=== PATIENT | female | born 1990 | race Caucasian/White ===

== ENCOUNTER 2022-03-02 12:43 | Outpatient (CLI) | payer OTHER, SELFPAY ==
--- NOTE | 2022-03-02 13:00 | CRLHL7_ITS ---
For Patients: As a result of the Cures Act, medical imaging exams and procedure reports are released immediately into your electronic medical record. You may view this report before your referring provider. If you have questions, please contact your health care provider. INDICATION: Dating and viability. LMP 01/03/2022. COMPARISON: None. TECHNIQUE: Real-time hernandez-scale imaging of the pelvis was performed. FINDINGS: Sonographic imaging demonstrates a single intrauterine gestation. The embryo`s crown-rump length measurement of 0.8 cm corresponds to a gestational age of 6 weeks 5 days with a sonographic due date of 10/21/2022. No heart tones or yolk sac identified. The placenta has not yet developed. No evidence of a perigestational hemorrhage. Retroverted uterus. Blood flow is seen within the ovaries. Small amount of simple free fluid in the cul-de-sac. IMPRESSION: 1. Single intrauterine gestation with crown rump length 0.8 cm which corresponds to a gestational age of 6 weeks 5 days. This is discordant with the clinical gestational of 8 weeks 2 days by LMP. 2. No heart tones or yolk sac identified. Based on crown-rump length, findings are diagnostic of failure. 3. Small amount of simple free fluid. Dictated by Marie Gutiérrez MD @ 03/02/2022 2:35:40 PM (Electronically Signed)
== END 2022-03-02 12:44 | disposition home or self-care (01) ==
LOC: US 12:45
PROVIDERS: Visit Provider Registered Nurse
DX: Z34.91 Encounter for supervision of normal pregnancy, unspecified, first trimester (principal); O36.8310 Maternal care for abnormalities of the fetal heart rate or rhythm, first trimester, not applicable or unspecified; Z3A.01 Less than 8 weeks gestation of pregnancy
CPT/HCPCS: 76817

== ENCOUNTER 2024-11-09 06:56 | Outpatient (CLI) | payer MEDICAID, SELFPAY ==
--- NOTE | 2024-11-09 07:15 | CRLHL7_ITS ---
For Patients: As a result of the Century Cures Act, medical imaging exams and procedure reports are released immediately into your electronic medical record. You may view this report before your referring provider. If you have questions, please contact your health care provider. INDICATION: Check viability and dates TECHNIQUE: Transabdominal and transvaginal scanning was performed. Transvaginal scanning was performed to better evaluate the IUP and adnexa. Ovarian blood flow was evaluated with color-flow and pulsed Doppler. COMPARISON: None FINDINGS: There is a living IUP with gestational age of 8 weeks 6 days by today`s crown-rump length and EDC of 06/15/2025. LMP is apparently unknown. The embryonic heart rate is measured at 180 beats per minute. The placenta is not yet formed. No subchorionic hemorrhage is evident. There is question of a 2.1 cm left ovarian corpus luteum. The right ovary measures 2.8 x 2.1 x 1.8 cm and the left 4.1 x 2.3 x 1.8 cm. Ovarian blood flow is demonstrated with color-flow and pulsed Doppler. No adnexal mass or free fluid is apparent. IMPRESSION: 1. Living IUP with gestational age of 8 weeks 6 days by today`s crown-rump length and EDC of 06/15/2025. 2. No complication evident. Dictated by Sudhir Munoz MD @ 11/10/2024 11:36:02 AM (Electronically Signed)
== END 2024-11-09 06:57 | disposition home or self-care (01) ==
LOC: US 06:57
PROVIDERS: Visit Provider Registered Nurse
DX: Z34.91 Encounter for supervision of normal pregnancy, unspecified, first trimester (principal); Z3A.08 8 weeks gestation of pregnancy
CPT/HCPCS: 76817

== ENCOUNTER 2024-11-09 08:45 | Outpatient (CLI) | payer MEDICAID, SELFPAY ==
[2024-11-09 12:57] LABS: Chlamydia DNA Amplified* NOT DETECTED (No Detected); GC DNA Amplified* NOT DETECTED (No Detected)
[2024-11-10 18:10] LABS: HPV Source Cervix; HPV, High Risk by TMA Not Detected
== END 2024-11-09 08:46 | disposition home or self-care (01) ==
PROVIDERS: Visit Provider Registered Nurse
DX: Z34.91 Encounter for supervision of normal pregnancy, unspecified, first trimester (principal); Z3A.08 8 weeks gestation of pregnancy; Z12.4 Encounter for screening for malignant neoplasm of cervix
CPT/HCPCS: 83020; 83021; 85660; 86592; 86703; 86704; 86706; 86762; 86787; 86803; 86850; 86900; 86901; 87086; 87340; 87491; 87591; 87624; 87625; 88141; 88142

== ENCOUNTER 2025-01-23 07:03 | Outpatient (CLI) | payer MEDICAID, SELFPAY ==
--- NOTE | 2025-01-23 07:15 | CRLHL7_ITS ---
For Patients: As a result of the Century Cures Act, medical imaging exams and procedure reports are released immediately into your electronic medical record. You may view this report before your referring provider. If you have questions, please contact your health care provider. OB ULTRASOUND GREATER THAN 14 WEEKS, 01/23/2025 CLINICAL HISTORY: Basic anatomy survey. COMPARISON: 11/09/2024. TECHNIQUE: Real time hernandez scale imaging of the fetus was performed. Evaluate anatomy. Transabdominal imaging performed. FINDINGS: KIM by US: 06/15/2025. GA: 19 weeks 4 days. POSITION: Vertex. PLACENTA/CORD: Placenta position: Posterior. Technique: TA. Placenta tip to internal OS: 8 cm. Umbilical Cord: 3 vessel cord. Placental insertion: Central. CERVIX: Visualized. Technique: TA. Length of closed cervix: 3.3 cm. AMNIOTIC FLUID: 4.7 cm SDP. OBSERVED STRUCTURES: Calvarium/Spine: Cerebellum 1.9 cm, 19 weeks 5 days. Cisterna Magna 4.4 mm. Nuchal Fold 4.1 mm. Lateral Ventricle 6.9 mm. CSP Midline Falx Choroid Plexus Spine Abdomen: Stomach Abd Cord Insert Urinary Bladder Kidneys Diaphragm Face: Nose/Lips Orbital view Profile Limbs: Upper Extremities Lower Extremities Hands Feet Vascular: 4 Ch Heart LVOT RVOT 3VV 3VTV BIOMETRY: BPD: 4.5 cm, 19 weeks 4 days. 52% HC: 16.8 cm, 19 weeks 3 days. 35% AC: 13.8 cm, 19 weeks 2 days. 33% FL: 3.1 cm, 19 weeks 5 days. 49% FL/AC: 22.75% ESCAMILLA/AC Ratio: 1.21. Heart Rate: 144 bpm. Age by this US: 19 weeks 4 days. KIM by this US: 06/15/2025. EFW: 294 grams, 10 oz. Percentile by KIM: 39% IMPRESSION: Normal anatomic survey. Concordance of clinical and sonographic dating. Kris Huntley M.D. Diagnostic Radiologist [email or web address] Transcribed: 11:04 am DW/Dictated by: Kris Huntley MD @ 01/23/2025 9:13:00 AM (Electronically Signed)
== END 2025-01-23 07:04 | disposition home or self-care (01) ==
PROVIDERS: Visit Provider Midwife
DX: Z34.92 Encounter for supervision of normal pregnancy, unspecified, second trimester (principal); Z3A.19 19 weeks gestation of pregnancy
CPT/HCPCS: 76805

== ENCOUNTER 2025-03-22 08:05 | Outpatient (CLI) | payer MEDICAID, SELFPAY | END 2025-03-22 08:06 | disposition home or self-care (01) | LOC: NFLDREF 03-27 12:49 | PROVIDERS: Visit Provider Advanced Practice Midwife | DX: Z34.92 Encounter for supervision of normal pregnancy, unspecified, second trimester (principal); Z3A.27 27 weeks gestation of pregnancy | CPT/HCPCS: 86592 ==

== ENCOUNTER 2025-05-23 14:54 | Outpatient (CLI) | payer MEDICAID, SELFPAY ==
[2025-05-24 14:35] LABS: Strep B DNA Probe Negative (Negative)
[2025-05-24 15:11] LABS: Strep B Susceptibility Needed? No
== END 2025-05-23 14:55 | disposition home or self-care (01) ==
LOC: NFLDREF 14:54
PROVIDERS: Visit Provider Advanced Practice Midwife
DX: Z34.93 Encounter for supervision of normal pregnancy, unspecified, third trimester (principal)
CPT/HCPCS: 82728; 87081; 87653

== ENCOUNTER 2025-06-06 14:38 | Outpatient (CLI) | payer MEDICAID, SELFPAY ==
--- NOTE | 2025-06-06 14:45 | CRLHL7_ITS ---
For Patients: As a result of the Cures Act, medical imaging exams and procedure reports are released immediately into your electronic medical record. You may view this report before your referring provider. If you have questions, please contact your health care provider. OB ULTRASOUND INDICATION: Fundal height measuring small for last 3 weeks. KIM by US: 06/15/2025. GA: 38 w, 5 d. Single. COMPARISON: 01/23/2025, . TECHNIQUE: Real time hernandez scale imaging of the fetus was performed. Transabdominal imaging performed. CERVIX: Not visualized. POSITIONING: Vertex. AMNIOTIC FLUID: 5.8 cm SDP (N: greater than 2 x 1 cm). PLACENTA: Technique: Transabdominal. PLACENTA POSITION: Posterior. DOPPLER: heart rate: 142 bpm. BIOMETRY: BPD: 8.8 cm. 35w, 2 d, 4.6 percent. HC: 33.3 cm. 38 w, 0 d, 20.3 percent. AC: 33.8 cm. 37 w, 5 d, 42.0 percent. FL: 7.3 cm. 37 w, 2 d, 20.7 percent. FL/AC ratio: 21.54 percent. HC/AC ratio: 0.99. EFW: 3185 g. Weight: 7 lbs, 0 oz. age by this US: 37 w, 1 d. KIM by this US: 06/26/2025. Percentile by KIM: 32.6 percent. IMPRESSION: 1. Single living intrauterine measures 37 weeks 1 day with sonographic due date of 06/26/2025. Sonographic age is 11 days behind the clinical age. 2. Estimated weight 33rd percentile. Abdominal circumference 42nd percentile. Kris Huntley M.D. Diagnostic Radiologist [email or web address] COLLEEN/Dictated by: Kris Huntley MD @ 06/06/2025 4:29:00 PM (Electronically Signed)
== END 2025-06-06 14:39 | disposition home or self-care (01) ==
LOC: US 14:38
PROVIDERS: Visit Provider Advanced Practice Midwife
DX: O36.5930 Maternal care for other known or suspected poor fetal growth, third trimester, not applicable or unspecified (principal); Z3A.38 38 weeks gestation of pregnancy
CPT/HCPCS: 76816

== ENCOUNTER 2025-06-18 01:30 | Inpatient (IN) | payer MEDICAID, SELFPAY ==
[2025-06-18] VITALS (16 sets, daily range): BP systolic 93–128; BP diastolic 66–82; PULSE 73–108; RESP 16; TEMP 36.8–37.1; O2SAT 95–98; BMI 21.9
--- NOTE | 2025-06-18 02:15 | W.PM.LDBA ---
Subjective History of Present Illness Narrative: Patient is being admitted to Labor and Delivery for active labor, transition phase. She is a 35 year old at 40 3/7 weeks gestation. Her full history and physical was dictated by Rosario DAVEY on 06/13/25. Please see this for details. She is accompanied by her partner and son. Specific Issues/Plans G 6 P 3023 Partner: John, Candidaex-8, Omar-6, Carlos-2. (2girls, 1 boy) H&P completed 06/13 by PETAR Vasquez, please listen to heart and lungs on admission # history of precipitous 2022 Very nervous about risk of home/car ; review this in 3rd trimester Consider elective IOL due to hx and anxiety related #anemia at 36 weeks Hgb 10.5, oral iron recommended # Lagging fundal heights EFW 33% at 38.5 weeks IMAGINst trimester (11/09/2024): IMPRESSION: 1. Living IUP with gestational age of 8 weeks 6 days by today`s crown-rump length and EDC of 06/15/2025. 2. No complication evident. Anatomy scan (01/23/2025): IMPRESSION: Normal anatomic survey. Concordance of clinical and sonographic dating. Growth US (05/16/2025): IMPRESSION: 1.Single living intrauterine measures 37 weeks 1 day with sonographic due date of 06/26/2025. Sonographic age is 11 days behind the clinical age. 2.Estimated weight 33rd percentile. Abdominal circumference 42nd percentile. Vaccinations: Flu: Recommended, declined Covid: Recommended, declined Tdap: given 05/10/25 RSV: declines 32 week mental health: [] Last pap: 11-09-24 OB - Problem Based A/P Additional Plan (1) Precipitous delivery: Status: Acute (2) (normal spontaneous vaginal delivery): Status: Acute (3) care and examination of lactating mother: Status: Acute Plan ASSESSMENT:?? 35yo at 40 3/7 weeks gestation?? complicated by:??anemia Labor type: spontaneous, active labor?? Category 1 FHR pattern, then Cat 2 with rapid descent.??? Labor complicated by: cat 2, precipitous labor?? GBS negative? PLAN:?? 1. Routine intrapartum cares as ordered. Continue with expectant management?? 2. Monitoring per policy, continuous x 20 min?? 3. Planning unmedicated . Candidate for analgesia of choice if time as appropriate.??? 4. Patient encouraged to reposition and ambulate to promote physiologic labor and .?? 5. This was documented after precipitous ? 6. Anticipate ? OB Exam Physical Exam Vital signs: Pulse BP 97 118/82 06/18/25 02:03 06/18/25 02:03 Narrative: Vitals Reviewed Constitutional:? Alert and oriented x3 HEENT:? Normocephalic, atraumatic Neck:? Supple Lungs:? Clear to auscultation bilaterally Heart:? Regular rate and rhythm, no murmur, rub or gallop Abdomen:? Soft, nontender, and gravid. Vertex by Alex's, confirmed with cervical exam. Extremities:? No edema or erythema Cervix: 9.5 cm/100%/0 station/vertex per nursing and hair on head palpated NST: 125 bpm/moderate variability/accelerations not present/variable decelerations present soon after arrival with rapid descent/contractions q 2 min
[2025-06-18] MEDS: IBUPROFEN 600 MG TABLET PO (02:18)
--- NOTE | 2025-06-18 02:24 | W.PM.OBVAGDE ---
OB Procedure Vag Delivery Mother Details Mother Details: The patient is a 35 year-old, 6, Para 4, admitted on 06/18/25 at 40 3/7 weeks gestation. Admission Date: 06/18/25 Additional Details Amniotic Membrane Status: SROM Amniotic Membrane Rupture Date: 06/17/25 Amniotic Membrane Rupture Time: 23:30 Amniotic Membrane Fluid Description: Clear Analgesia/Anesthesia Type: None Waterbirth: No Pitcoin: No Intrapartal Events: Precipitous Labor <3 Hrs Labor Onset: 23:30 Complete: 01:39 Pushin:39 Heart: heart tones during second stage were category 2 with variable decels with rapid descent. Moderate variability throughout. Delivery Details Delivery Date: 06/18/25 Delivery Time: :39 Route of delivery: Infant Gender: Female Viability: Alive; Heart Rate Present Position at Delivery: OA Delivery Details: Patient was admitted for?precipitous labor?and progressed quickly being dilated to RIM on arrival. SROM noted at?2330?with clear fluid. Patient was complete at?0139?and?pushing?at?0139. of?a viable?female at?0153?in lithotomy (since ER MD was attending til my arrival). Vertex?delivered?OA. No nuchal cord or shoulder.?Body?delivered easily and without incident.?Infant?passed to?mothers?abdomen with a vigorous cry. Cord was clamped and cut at approximately 5 minutes. APGARS were?9?at one minute and?9?at five?minutes?respectively.?Intact placenta with a?3 vessel?cord delivered spontaneously at?0202. Fundus firm. Perineum intact. QBL?150?cc. Mother and baby stable; mother plans to breastfeed. weight 7#14oz ? 1 Minute Interval Total Score: 9 5 Minute Interval Total Score: 9 Additional Details Shoulder Dystocia: No Placenta Delivery Time: 02:02 Placental Delivery Description: Spontaneous Procedure Done: Global Blood Loss: 150 Laceration: None Blood Loss Measurement Type: QBL Bakri Used: No Sponge/Need Count Correct: Yes Cord Vessel Description: 3 Vessels Event Summary Status: Mother and infant were stable after delivery. Disposition: floor
[2025-06-18] MEDS: DOCUSATE SODIUM 100 MG CAPSULE PO (08:27)
[2025-06-18] MEDS: ACETAMINOPHEN 500 MG TABLET 1000 MG PO (08:27)
[2025-06-19 00:30] VITALS: BP 90/58; PULSE 79; RESP 16; TEMP 36.9; O2SAT 95
[2025-06-19 05:42] VITALS: BP 88/56; PULSE 72; RESP 16; TEMP 36.7; O2SAT 96
[2025-06-19 05:59] LABS: Hemoglobin* 9.1 gm/dL (12.0-16.0)
--- NOTE | 2025-06-19 07:19 | P.DS_ITS ---
DS: Providers Provider Time Seen by Provider: 07:15 Date Seen: 06/19/25 Date of admission: 06/18/25 01:30 Primary care physician: Not a Local Provider Admitting Clinician: Mitzi Nice CNM Attending Physician on discharge: Orquidea Camahco CNM Date of Discharge: 06/19/25 DS: Diagnosis Discharge Diagnosis (1) care and examination of lactating mother: Status: Acute (2) Anemia: Status: Acute Exam Narrative: Exam Narrative: Constitutional: no apparent distress Respiratory: no labored breathing, lung sounds clear to auscultation Cardiovascular: regular heart rate and rhythm. Hyptotensive 88/56, no lightheaded or dizziness Abdomen: soft, non-tender. uterine fundus is firm, midline, 3cm below umbilicus. Appropriate for stage of healing Mood: calm, cooperative Extremities: no edema Const: Vital Signs, click to edit/add: Vital Signs - 24 hr 06/18/25 08:56 06/18/25 13:13 06/18/25 16:30 Temperature 98.7 F Pulse Rate [Pulse Oximeter] 87 91 94 Respiratory Rate 16 16 16 Blood Pressure [Le ft Arm] 103/67 93/66 108/73 Pulse Oximetry 97 96 95 Oxygen Delivery Me thod Room Air Room Air Room Air 06/18/25 21:08 06/19/25 00:30 06/19/25 05:42 Temperature 98.2 F 98.4 F 98.1 F Pulse Rate [Pulse Oximeter] 99 79 72 Respiratory Rate 16 16 16 Blood Pressure [Le ft Arm] 111/74 90/58 L 88/56 L Pulse Oximetry 98 95 96 Oxygen Delivery Me thod Room Air Room Air Room Air Documenting provider has reviewed patient's vital signs: yes OB - DS: Summary Hospital Course Hospital Course: Yamilex is a 35 year old G 6 P 4 at 40 weeks 3 days gestation that was admitted to the Center on 06/18/25 for spontaneous labor. She had a precipitous uncomplicated vaginal delivery. She delivered a viable female . No large blood clots or increased vaginal bleeding. She is and says that is going well. Discussed resources if she desires. Passing gas but no bowel movement yet. Voiding without problem. Vitals have been stable. Blood pressure is soft but she is asymptomatic. the patient has done well and she desires to go home. Not interested in more children. Unsure of child prevention plans. Will discuss more at visits. ISRAEL Dawkins Peripartum Data delivery method: Vaginal Laceration description: None Episiotomy description: None complications: none Gender: Female Discharge Plan: Home Status at Discharge Functional status at discharge: independent ambulation Overall status at discharge: patient is progressing back to baseline Time Spent with Patient Time attestation: Total time spent providing and/or coordinating discharge services: Time spent: Less than 30 minutes Discharge Plan Discharge Disposition: Home, Self-Care Date of Admission: 06/18/25 01:30 Attending Provider on Discharge: Orquidea Camacho Primary Care Provider: Provider,Not a Local Condition: Stable Anticipated Discharge Date/Time: 06/19/25 09:36 Discharge Medications: Continued DHA 200 mg capsule 200 mg PO DAILY ferrous sulfate 325 mg (65 mg iron) tablet 325 mg PO QDAY Discharge Orders: Discharge Order (Routine); Ordered 06/19/25 Ordered By: Orquidea Camacho Patient Education: OB Over the Counter Medication Information, OB Vaginal/Breast Feeding Additional Instructions: Discharge instructions were reviewed with the patient including signs and symptoms of infection and home going medications Nothing vaginally for 6 weeks: no tampons or intercourse Do not drive while taking narcotic pain medication(s) Off Work or School for 8 weeks Symptoms to report to doctor: * Bleeding that saturates more than one pad per hour * Passing clots larger than the size of a golf ball * Pain not relieved by prescribed medication * Fever above 100.4 degrees Fahrenheit * A foul vaginal odor * Difficulty in emotions, mood, and functions * Thoughts of hurting yourself and/or * Painful, reddened area in your breast * Any drainage, redness, or tenderness in your IV/epidural site * Severe headache that doesn't improve after taking medications * Changes in vision, including temporary loss of vision, blurred vision, and/or light sensitivity * Upper abdominal pain (usually under ribs on the right side) * Decrease in urination or painful, frequent urinating * Chest pain * Shortness of breath * Tenderness or pain with redness and/swelling in the calf(s) of your leg 2-week visit: discuss infant feeding concerns, review control options and screen for anxiety/depression. 6-week visit for an annual exam. consultation services are available to all mothers and babies for the first year after delivery.? To make an appointment, please call [phone]. Activity Level: Activity as Tolerated and Light activity Discharge Diet: Regular Follow Up Appointments: [facility] [Other] [facility] [Provider Group] Forms: [facility] Info Instructions
[2025-06-19 09:00] VITALS: BP 96/56; PULSE 78; RESP 16; TEMP 37.2
== END 2025-06-19 11:15 | disposition home or self-care (01) | DRG 807 ==
LOC: OB OUT 01:30 → OB 01:30
PROVIDERS: Admitting Provider Midwife; Visit Provider Midwife
DX: O62.3 Precipitate labor (principal); Z37.0 Single live birth; O99.02 Anemia complicating childbirth; D64.9 Anemia, unspecified; Z3A.40 40 weeks gestation of pregnancy
CPT/HCPCS: 36415; 85018; 86592; A9270

== ENCOUNTER 2025-06-24 13:32 | Outpatient (CLI) | payer MEDICAID, SELFPAY ==
--- NOTE | 2025-06-24 13:45 | CRLHL7_ITS ---
For Patients: As a result of the Century Cures Act, medical imaging exams and procedure reports are released immediately into your electronic medical record. You may view this report before your referring provider. If you have questions, please contact your health care provider. INDICATION: Retained portions of placenta and membranes COMPARISON: 06/06/2025, 01/23/2025 TECHNIQUE: 2D hernandez-scale and color Doppler images were acquired of the pelvis using a transabdominal and transvaginal approach. Transvaginal imaging performed to better visualize the endometrial stripe and ovaries. FINDINGS: Uterus measures 13.9 cm in length by 7.0 cm in AP diameter by 10.8 cm in transverse dimension. Hypoechoic echoes are present throughout the endometrial canal which is distended up to 1.3 cm. Associated echogenic foci noted with air type shadowing. No uterine fibroid. Ovaries not visualized due to bowel gas. There are no suspicious fluid collections within the cul-de-sac. IMPRESSION: Blood products appear to be present within the endometrial canal along with scar tissue or air. No associated color flow appreciated. Dictated by Kris Huntley MD @ 06/24/2025 2:38:12 PM (Electronically Signed)
== END 2025-06-24 13:33 | disposition home or self-care (01) ==
LOC: US 13:32
PROVIDERS: Visit Provider Advanced Practice Midwife
DX: O73.1 Retained portions of placenta and membranes, without hemorrhage (principal); N93.9 Abnormal uterine and vaginal bleeding, unspecified; Z39.1 Encounter for care and examination of lactating mother
CPT/HCPCS: 76830; 76856